=== PATIENT | female | born 1930 | race Hispanic/Latino ===

== ENCOUNTER 2017-01-20 14:08 | Inpatient (IN) | payer MEDICARE, BC ==
[2017-01-20 14:17] VITALS: BMI 17.4
[2017-01-20] MEDS ORDERED: Sodium Chloride 0.9% 1,000 ML IV STA (14:34)
--- NOTE | 2017-01-20 14:42 | ED PDOC ---
Arrival/HPI - General Chief Complaint: GI Problem Time Seen by Provider: 01/20/17 14:09 Historian: Patient - History of Present Illness Narrative History of Present Illness (Text): 01/20/17 14:28 A 86 year old female, whose past medical history includes hyponatremia, presents to the emergency department complaining of non bloody watery diarrhea since last night. Patient notes associated fatigue. She denies any nausea, vomiting, abdominal pain, dysuria, or any other complaints at this time. PMD: Dr. Ramos ([place]) Time/Duration: 24 hours Symptom Onset: Sudden Symptom Course: Unchanged Quality: Other Activities at Onset: Rest Modifying Factors (Text): None Context: Home Associated Symptoms (Text): fatigue Past Medical History - Provider Review Nursing Documentation Reviewed: Yes - Travel History Have you recently traveled outside [place] w/in the past 3 mons?: No - Infectious Disease Hx of Infectious Diseases: None - Cardiac Hx Cardiac Disorders: Yes Hx Hypertension: Yes - Pulmonary Hx Respiratory Disorders: No - Neurological Hx Neurological Disorder: No - HEENT Hx HEENT Disorder: Yes - Renal Hx Renal Disorder: No - Endocrine/Metabolic Hx Endocrine Disorders: No - Hematological/Oncological Hx Blood Disorders: No - Integumentary Hx Dermatological Disorder: No - Musculoskeletal/Rheumatological Hx Musculoskeletal Disorders: No - Gastrointestinal Hx Gastrointestinal Disorders: Yes Hx Gastritis: Yes Hx Gastroesophageal Reflux: Yes - Genitourinary/Gynecological Hx Genitourinary Disorders: No - Psychiatric Hx Psychophysiologic Disorder: Yes Hx Depression: Yes Hx Substance Use: No - Surgical History Hx Hysterectomy: Yes - Anesthesia Hx Anesthesia: Yes Hx Anesthesia Reactions: No Family/Social History - Physician Review Nursing Documentation Reviewed: Yes Family/Social History: Unknown Family HX Smoking Status: Unknown If Ever Smoked Hx Alcohol Use: No Hx Substance Use: No Allergies/Home Meds Allergies/Adverse Reactions: Allergies dairy Allergy (Uncoded 01/20/17 14:15) VOMITING Home Medications: Home Meds Medication Instructions Recorded Confirmed Acetaminophen [Tylenol 325mg tab] 1 tab PO PRN PRN 01/20/17 01/20/17 Aspirin [Johnson Aspirin] 1 tab PO DAILY 01/20/17 01/20/17 Atorvastatin [Lipitor] 1 tab PO DAILY 01/20/17 01/20/17 Carvedilol [Coreg] 1 tab PO DAILY 01/20/17 01/20/17 Cyanocobalamin (Vitamin B-12) 1 tab PO DAILY 01/20/17 01/20/17 [Vitamin B12] Desloratadine [Clarinex] 1 tab PO DAILY 01/20/17 01/20/17 Docusate Sodium [Colace] 1 tab PO PRN PRN 01/20/17 01/20/17 Melatonin [Melatin] 2 tab PO BID 01/20/17 01/20/17 Memantine [Namenda] 1 tab PO HS 01/20/17 01/20/17 Omeprazole Magnesium [Prilosec] 1 tab PO DAILY 01/20/17 01/20/17 Vit A/Vit C/Vit E/Zinc/Copper 1 tab PO DAILY 01/20/17 01/20/17 [Icaps Areds Softgel] buPROPion [Wellbutrin] 1 tab PO DAILY 01/20/17 01/20/17 hydrALAZINE [Apresoline] 50 mg PO TID 01/20/17 01/20/17 traZODone [Desyrel] 1.5 tab PO HS 01/20/17 01/20/17 Physical Exam - Physical Exam Narrative Physical Exam (Text): - Review of Systems Constitutional: Fatigue absent: Weight Change Eyes: Normal ENT: Normal Respiratory: Normal absent: SOB, Cough, Sputum Cardiovascular: Normal absent: Chest pain, Palpitations, Syncope Gastrointestinal: Diarrhea absent: Abdominal pain, Nausea, Vomiting Genitourinary: Normal. absent: Dysuria, Frequency, Hematuria Musculoskeletal: Normal. absent: Arthralgias, Back Pain, Neck Pain Skin: Normal Neurological: Normal absent: Focal Weakness Endocrine: Normal Hemo/Lymphatic: Normal Psychiatric: Normal - Physical exam Patient appears age appropriate, speaking full sentences without difficulty. - Systems Exam Head: Present: Atraumatic, Normocephalic Pupils: Present: PERRL Extraocular Muscles: Present: EOMI Conjunctiva: Present: Normal Mouth: Present: Moist Mucous Membranes Neck: Present: Normal Range of Motion. No: MIDLINE TENDERNESS, Paraspinal Tenderness Respiratory/Chest: Present: Clear to Auscultation, Good Air Exchange. No: Respiratory Distress, Accessory Muscle Use, Tachypneic Cardiovascular: Present: Regular Rate and Rhythm, Normal S1, S2, Peripheral Pulses Present. No: Murmurs Abdomen: Present: Normal Bowel Sounds, No: Tenderness, Peritoneal Signs, Rebound, Guarding, Distention Back: Present: Normal Inspection. No: Midline Tenderness, Paraspinal Tenderness Upper Extremity: Present: Normal Inspection. No: Cyanosis, Edema Lower Extremity: Present: Normal Inspection. No: Edema Neurological: Present: GCS=15, Speech Normal, cranial nerves II through XII fully intact with no cerebellar abnormality, neuro-sensory fully intact. No focal neurological deficits. Skin: Present: Warm, Dry, Normal Color. No: Rashes Lymphatic: Present: OX3, NI, NC Psychiatric: Present: Alert, Oriented x 3, Normal Insight, Normal Concentration Vital Signs Reviewed: Yes Vital Signs Temp Pulse Resp BP Pulse Ox 01/20/17 16:53 99.2 F 71 18 121/59 L 96 01/20/17 14:44 100.7 F H 01/20/17 14:15 100.7 F H 76 18 123/58 L 96 Temperature: Febrile Blood Pressure: Hypotensive Pulse: Regular Respiratory Rate: Normal Appearance: Positive for: Well-Appearing, Non-Toxic, Comfortable Pain Distress: None Mental Status: Positive for: Alert and Oriented X 3 Medical Decision Making ED Course and Treatment: 01/20/17 14:28 Impression: A 86 year old female with non bloody watery diarrhea. Physical examination reveals no acute findings. Differential Diagnosis include but are not limited to: Viral illness vs. electrolyte imbalance vs. dehydration Plan: -- Abdomen/Pelvis CT -- Labs -- Urinalysis -- Reassess and disposition Progress Notes: EKG: Ordered, reviewed, and independently interpreted the EKG. Rate : 73 BPM Rhythm : NSR Interpretation : No ST-segment elevations, normal intervals. Interpreted by me. 01/20/17 15:24 Leukocytosis noted; diarrhea presumed infectious, antibiotics ordered. Hyponatremia noted, patient already receiving IV Fluids. 01/20/17 15:56 Abdomen/Pelvis CT: Dictator : Fercho Kim MD IMPRESSION: Gastric mural thickening, nonspecific, involving the fundus and body of the stomach. Evaluation limited by poor distension and absent oral contrast. Sigmoid diverticulosis without evidence of diverticulitis. Minimal fluid in pelvis. Additional minor findings as above. 01/20/17 16:35 pt expressed wished to be admitted to Dr. Sanders's service dw resident Dr. Tommy cash pt hemodynamically stable in no distress 01/20/17 16:[address] Adaniel, accepted pt to his service - Lab Interpretations Lab Results: 01/20/17 14:30 01/20/17 14:30 Lab Results 01/20/17 15:20: Urine Color Yellow, Urine Appearance Clear, Urine pH 7.0, Ur Specific [place] 1.025, Urine Protein 100 H, Urine Glucose (UA) Negative, Urine Ketones Negative, Urine Blood Negative, Urine Nitrate Negative, Urine Bilirubin Negative, Urine Urobilinogen 0.2, Ur Leukocyte Esterase Negative, Urine RBC 0 - 2, Urine WBC 2 - 5, Ur Epithelial Cells 0 - 2, Urine Bacteria Occ 01/20/17 14:30: Sodium 125 L, Potassium 3.8, Chloride 90 L, Carbon Dioxide 28, Anion Gap 11, BUN 18, Creatinine 0.7, Est GFR ( Amer) > 60, Est GFR (Non- Af Amer) > 60, Random Glucose 115 H, Calcium 8.7, Total Bilirubin 1.1, AST 26, ALT 32, Alkaline Phosphatase 67, Total Protein 6.4, Albumin 3.6, Globulin 2.7, Albumin/Globulin Ratio 1.3, Lipase 57 01/20/17 14:30: PT 11.7, INR 1.08, APTT 30.3 01/20/17 14:30: WBC 13.9 H, RBC 3.51, Hgb 11.5 L, Hct 33.1 L, MCV 94.3, MCH 32.8 , MCHC 34.7, RDW 14.4, Plt Count 177, MPV 9.6, Gran % 91.5 H, Lymph % (Auto) 3.7 L, [place] % (Auto) 4.7, Eos % (Auto) 0.0 L, Baso % (Auto) 0.1, Gran # 12.76 H , Lymph # 0.5 L, [place] # 0.7 H, Eos # 0.0, Baso # 0.01, Neutrophils % (Manual) 90 H, Band Neutrophils % 5 H, Lymphocytes % (Manual) 3 L, Monocytes % (Manual) 2 , Platelet Evaluation Normal I have reviewed the lab results: Yes - RAD Interpretation Radiology Orders: 01/20/17 14:26 ABD & PELVIS W/O PO OR IV CONT [CT] Stat - Medication Orders Current Medication Orders: Discontinued Medications Acetaminophen (Tylenol 325mg Tab) 650 mg PO STAT STA Stop: 01/20/17 14:35 Last Admin: 01/20/17 14:44 Dose: 650 mg Sodium Chloride (Sodium Chloride 0.9%) 1,000 mls @ 1,000 mls/hr IV .Q1H STA Stop: 01/20/17 15:33 Last Admin: 01/20/17 14:41 Dose: 1,000 mls/hr Metronidazole (Flagyl) 500 mg in 100 mls @ 100 mls/hr IVPB STAT STA PRN Reason: Protocol Stop: 01/20/17 16:21 Last Admin: 01/20/17 16:53 Dose: 100 mls/hr Ceftriaxone Sodium (Rocephin 1 Gram Ivpb) 1 gm in 100 mls @ 200 mls/hr IV STAT STA PRN Reason: Protocol Stop: 01/20/17 15:51 Last Admin: 01/20/17 16:14 Dose: 200 mls/hr - Scribe Statement The provider has reviewed the documentation as recorded by the Scribe Melissa Grullon training with Eduar Blanco Provider Scribe Attestation: All medical record entries made by the Scribe were at my direction and personally dictated by me. I have reviewed the chart and agree that the record accurately reflects my personal performance of the history, physical exam, medical decision making, and the department course for this patient. I have also personally directed, reviewed, and agree with the discharge instructions and disposition. Disposition/Present on Arrival - Present on Arrival Any Indicators Present on Arrival: No History of DVT/PE: No History of Uncontrolled Diabetes: No Urinary Catheter: No History of Decub. Ulcer: No History Surgical Site Infection Following: None - Disposition Have Diagnosis and Disposition been Completed?: Yes Diagnosis: Diarrhea Disposition: HOSPITALIZED Disposition Time: 16:48 Patient Plan: Admission Patient Problems: Current Active Problems Problem Status Onset Diarrhea Acute Condition: FAIR Referrals: PCP,NO [Primary Care Provider] - Follow up with primary
[2017-01-20 14:55] LABS: BASO # 0.01 K/mm3 (0.0-2.0); BASO % 0.1 % (0.0-3.0); GRAN # 12.76 (1.4-6.5); GRAN % 91.5 % (50.0-68.0); HEMOGLOBIN 11.5 gm/dL (12.0-16.0); LYMPH # 0.5 (1.2-3.4); LYMPH % 3.7 % (22.0-35.0); MEAN CELL VOLUME 94.3 fL (80.0-105.0); MEAN CORPUSCULAR HEMOGLOBIN 32.8 pg (25.0-35.0); MEAN CORPUSCULAR HGB CONC 34.7 g/dl (31.0-37.0); MEAN PLATELET VOLUME 9.6 fl (7.0-11.0); MONO # 0.7 (0.1-0.6); MONO % 4.7 % (1.0-6.0); PLATELET COUNT 177 10^3/uL (120.0-450.0); RBC 3.51 10^6/uL (3.5-6.1); RED CELL DISTRIBUTION WIDTH 14.4 % (11.5-14.5); WHITE BLOOD COUNT 13.9 10^3/ul (4.5-11.0)
[2017-01-20 15:06] LABS: ALB/GLOB RATIO 1.3 (1.1-1.8); ALBUMIN 3.6 g/dL (3.0-4.8); ALT/SGPT 32 U/L (7-56); AST/SGOT 26 U/L (15-39); BLOOD UREA NITROGEN 18 mg/dL (7-21); CALCIUM 8.7 mg/dL (8.4-10.5); GFR AFRICAN-AMERICAN > 60; GFR NON-AFRICAN AMERICAN > 60; LIPASE 57 U/L (23-300)
[2017-01-20 15:08] LABS: INR 1.08 (0.93-1.08); PARTIAL THROMBOPLASTIN TIME 30.3 Seconds (23.7-30.8); PROTHROMBIN TIME 11.7 Seconds (9.9-11.8)
[2017-01-20] MEDS ORDERED: metroNIDAZOLE IV 500 mg/100 ml 500 MG/100 ML BAG IVPB STA (15:22)
[2017-01-20] MEDS ORDERED: cefTRIAXone 1 gm 1 GM/100 ML BAG IV STA (15:22)
[2017-01-20 15:29] LABS: URINE BILIRUBIN NEGATIVE (NEGATIVE); URINE BLOOD NEGATIVE (NEGATIVE); URINE GLUCOSE (UA) NEGATIVE (NEGATIVE); URINE LEUKOCYTE ESTERASE NEGATIVE Leu/uL (NEGATIVE); URINE NITRATE NEGATIVE (NEGATIVE); URINE PROTEIN 100 mg/dL (<30 mg/dL); URINE UROBILINOGEN 0.2 E.U./dL (<1 E.U./dL)
[2017-01-20 15:33] LABS: URINE APPEARANCE CLEAR (CLEAR); URINE COLOR YELLOW (YELLOW)
[2017-01-20 15:41] LABS: URINE EPITHELIAL CELLS 0 - 2 /hpf (0-5); URINE RBC 0 - 2 /hpf (0-2)
[2017-01-20 15:42] LABS: URINE BACTERIA OCC (NEG)
--- NOTE | 2017-01-20 15:53 | CT ---
PROCEDURE: CT Abdomen and Pelvis without intravenous contrast HISTORY: diarrhea COMPARISON: None. TECHNIQUE: Without contrast.. Contrast Dose: 0 Radiation dose: Total exam DLP = 192.49 mGy-cm. This CT exam was performed using one or more of the following dose reduction techniques: Automated exposure control, adjustment of the mA and/or kV according to patient size, and/or use of iterative reconstruction technique. FINDINGS: LOWER THORAX: Unremarkable. LIVER: Unremarkable. No gross lesion or ductal dilatation. GALLBLADDER AND BILE DUCTS: Unremarkable. PANCREAS: Unremarkable. No gross lesion or ductal dilatation. SPLEEN: Unremarkable. ADRENALS: Unremarkable. No mass. KIDNEYS AND URETERS: Unremarkable. No hydronephrosis. No solid mass. VASCULATURE: No evidence of abdominal aortic aneurysm. BOWEL: There is mural thickening of the gastric fundus and body although evaluation is limited by the absence of oral contrast and distension. This is nonspecific and may reflect an infectious or inflammatory gastritis. There is no bowel obstruction. There is sigmoid diverticulosis without evidence diverticulitis. APPENDIX: Not positively identified. No secondary findings to suggest acute appendicitis. PERITONEUM: Small amount of fluid in the pelvis, nonspecific. LYMPH NODES: There is no retroperitoneal or pelvic lymphadenopathy. There is a linear array of nodular calcifications in the lower right abdomen, likely old calcified mesenteric lymph nodes. BLADDER: Unremarkable. REPRODUCTIVE: Status post hysterectomy. BONES: No acute fracture. Lumbar levoscoliosis. Grade 1 anterolisthesis at L5-S1 with right L5 spondylolysis. Multilevel degenerative disc disease in the lumbar spine. OTHER FINDINGS: None. IMPRESSION: Gastric mural thickening, nonspecific, involving the fundus and body of the stomach. Evaluation limited by poor distension and absent oral contrast. Sigmoid diverticulosis without evidence of diverticulitis. Minimal fluid in pelvis. Additional minor findings as above.
[2017-01-20 16:12] LABS: BAND 5 % (0-2); LYMPHOCYTE 3 % (22.0-35.0); MONOCYTE 2 % (1.0-6.0); NEUTROPHIL 90 % (50.0-70.0); PLATELET ESTIMATE NORMAL (NORMAL)
--- NOTE | 2017-01-20 21:11 | CP.PCM.HP ---
<MelvingennyObey - Last Filed: 01/20/17 21:08> History of Present Illness - History of Present Illness History of Present Illness: Patient is an 86 year old female who presented to the ED complaining of Non- Bloody liquid Diarrhea x 1 day. Patient stated that she has had bowel movements every hour for the past day. Patient denies any nausea, vomiting, abdominal pain, and dysuria. Complains of fatigue associated with diarrhea. 12 point ROS as per HPI above otherwise negative. PMH Hyponatremia, Bronchitis, breast CA (remission), salivary duct CA ( Remission) and HTN, Insomnia PSH B/L mastectomy, salivary duct removal, Hysterectomy Allergies Lactose Intolerance Hospitalizations [facility] in [facility] for Bronchitis (found to be Hyponatremia at that point) Fam Hx - Mother had Ovarian cancer ( in her 60s), Father had Brain Tumor ( in his 60s) Social Hx: Denies Tobacco and Alcohol use. Drinks Tea in the morning. Most recent meals before symptoms was Had Beef BBQ ribs/ Fish and Chips Present on Admission - Present on Admission Any Indicators Present on Admission: No Past Patient History - Infectious Disease Hx of Infectious Diseases: None - Past Social History Smoking Status: Unknown If Ever Smoked - CARDIAC Hx Cardiac Disorders: Yes Hx Hypertension: Yes - PULMONARY Hx Respiratory Disorders: No - NEUROLOGICAL Hx Neurological Disorder: No - HEENT Hx HEENT Problems: Yes - RENAL Hx Chronic Kidney Disease: No - ENDOCRINE/METABOLIC Hx Endocrine Disorders: No - HEMATOLOGICAL/ONCOLOGICAL Hx Blood Disorders: No - INTEGUMENTARY Hx Dermatological Problems: No - MUSCULOSKELETAL/RHEUMATOLOGICAL Hx Musculoskeletal Disorders: No - GASTROINTESTINAL Hx Gastrointestinal Disorders: Yes Hx Gastritis: Yes Hx Gastroesophageal Reflux: Yes - GENITOURINARY/GYNECOLOGICAL Hx Genitourinary Disorders: No - PSYCHIATRIC Hx Psychophysiologic Disorder: Yes Hx Depression: Yes Hx Substance Use: No - SURGICAL HISTORY Hx Hysterectomy: Yes - ANESTHESIA Hx Anesthesia: Yes Hx Anesthesia Reactions: No Meds Allergies/Adverse Reactions: Allergies Allergy/AdvReac Type Severity Reaction Status Date / Time dairy Allergy VOMITING Uncoded 01/20/17 14:15 Physical Exam - Constitutional Appears: Non-toxic, No Acute Distress - Head Exam Head Exam: ATRAUMATIC, NORMOCEPHALIC - Eye Exam Eye Exam: EOMI - Respiratory Exam Respiratory Exam: Clear to Auscultation Bilateral. absent: Accessory Muscle Use , Rales, Rhonchi, Wheezes, Stridor - Cardiovascular Exam Cardiovascular Exam: REGULAR RHYTHM, +S1, +S2. absent: +S4, Systolic Murmur - GI/Abdominal Exam GI & Abdominal Exam: Hyperactive Bowel Sounds, Soft. absent: Distended, Tenderness - Extremities Exam Extremities exam: Positive for: normal capillary refill. Negative for: pedal edema - Neurological Exam Neurological exam: Alert, Oriented x3 - Psychiatric Exam Psychiatric exam: Normal Affect, Normal Mood - Skin Skin Exam: Intact, Normal Color Results - Vital Signs Recent Vital Signs: Last Vital Signs Temp 99.2 F 01/20/17 16:53 Pulse 79 01/20/17 17:47 Resp 17 01/20/17 17:47 BP 121/59 L 01/20/17 16:53 Pulse Ox 98 01/20/17 17:47 - Labs Result Diagrams: 01/20/17 14:30 01/20/17 14:30 Assessment & Plan - Assessment and Plan (Free Text) Assessment: A: Patient is an 86 year old female who presented to the ED complaining of Non- Bloody Liquid Diarrhea x 1 day w/ associated fatigue. Plan: P: 1.Diarrhea w/ associated Fatigue -Blood Cultures, CDiff Toxin and Antigen test, Ova and Parasite routine, Stool Cultures, Urine Cultures, Fecal Leukocytes, Procalcitonin, metronidazole IV, Ceftriaxone, Protonix. 2.Hyponatremia -Fluids, Urine Osmolality, 3.Anemia -Reticulocyte Count, Ferritin, B12/Folate, Fecal Ocult Blood Test 4.HTN -Carvedilol 5.Insomnia -Trazadone 6.GI proph -Protonix - Date & Time Date: 01/20/17 Time: 21:16 <Marlo Sanders - Last Filed: 02/09/17 13:10> Results - Vital Signs Recent Vital Signs: Last Vital Signs Temp 98.3 F 01/22/17 07:50 Pulse 78 01/22/17 13:45 Resp 20 01/22/17 07:50 BP 128/82 01/22/17 13:45 Pulse Ox 97 01/22/17 07:50 - Labs Result Diagrams: 01/22/17 07:00 01/22/17 07:00 Attending/Attestation - Attestation I have personally seen and examined this patient.: Yes I have fully participated in the care of the patient.: Yes I have reviewed all pertinent clinical information: Yes Notes (Text): 02/09/17 13:10 Medical record note made by the resident after discussion with my direction and input after the patient was personally seen and examined by me. I have reviewed the chart and agree that the record accurately reflects by personal performance of the history, physical exam, data review, and medical decision-making, in the course for the patient. I have also personally directed the plan of care.
[2017-01-20 21:29] LABS: % IRON SATURATION 5 % (20-55); IRON 13 ug/dL (45-180); TOTAL IRON BINDING CAPACITY 244 ug/dL (265-497)
[2017-01-20] MEDS: Sodium Chloride 0.9% 1,000 ML IV SCH (21:30)
[2017-01-20] MEDS: metroNIDAZOLE IV 500 mg/100 ml 500 MG/100 ML BAG IVPB SCH (21:32)
[2017-01-21] MEDS: metroNIDAZOLE IV 500 mg/100 ml 500 MG/100 ML BAG IVPB SCH ×2 (05:13→14:28)
[2017-01-21 07:09] LABS: BASO # 0.01 K/mm3 (0.0-2.0); BASO % 0.2 % (0.0-3.0); GRAN # 5.25 (1.4-6.5); GRAN % 84.2 % (50.0-68.0); LYMPH # 0.6 (1.2-3.4); MEAN CELL VOLUME 94.5 fL (80.0-105.0); MEAN CORPUSCULAR HEMOGLOBIN 32.2 pg (25.0-35.0); MEAN PLATELET VOLUME 9.6 fl (7.0-11.0); MONO # 0.4 (0.1-0.6); MONO % 5.6 % (1.0-6.0); PLATELET COUNT 151 10^3/uL (120.0-450.0); RBC 3.11 10^6/uL (3.5-6.1); RED CELL DISTRIBUTION WIDTH 14.5 % (11.5-14.5); WHITE BLOOD COUNT 6.2 10^3/ul (4.5-11.0)
[2017-01-21 07:17] LABS: ALB/GLOB RATIO 1.1 (1.1-1.8); ALBUMIN 2.8 g/dL (3.0-4.8); ALT/SGPT 31 U/L (7-56); AST/SGOT 27 U/L (15-39); BLOOD UREA NITROGEN 12 mg/dL (7-21); CALCIUM 8.1 mg/dL (8.4-10.5); GFR AFRICAN-AMERICAN > 60; GFR NON-AFRICAN AMERICAN > 60
[2017-01-21] MEDS ORDERED: Potassium Chloride 40 mEq/30 ml LIQ UD PO STA (07:42)
[2017-01-21] MEDS: Sodium Chloride 0.9% 1,000 ML IV SCH (08:21)
[2017-01-21] MEDS ORDERED: cefTRIAXone 1 gm 1 GM/100 ML BAG IVPB SCH (10:00)
--- NOTE | 2017-01-21 10:33 | CARD ---
APPROVED REPORT EKG Measurement Heart [id number] <Conclusion> Normal sinus rhythm Possible Left atrial enlargement NSSTW changes Prolonged QTc
[2017-01-21] MEDS: Potassium Chloride 40 mEq/30 ml LIQ UD PO SCH ×3 (12:05→20:53)
[2017-01-21 13:38] LABS: FOLATE > 20.0 ng/mL
--- NOTE | 2017-01-21 14:54 | CP.PCM.PN ---
Addendum entered and electronically signed by Logan Dominguez DO 01/21/17 16:18: Patient was seen and examined and case was discussed at length with Dr. Garcia. Patient likely food borne illness vs self ingestion of lactose in ice cream while lactose intolerant vs gastroenteritis as cause for her diarrhea. Some GI losses resulting in electrolyte abnormalities, are being repleted as needed and hydrating patient. Discussed at length with daughter at bedside. Logan Dominguez D.O. PGY-2 Original Note: <JUAN GARCIA - Last Filed: 01/21/17 15:06> Subjective - Date & Time of Evaluation Date of Evaluation: 01/21/17 Time of Evaluation: 06:45 - Subjective Subjective: Juan Garcia D.O. PGY1 - Internal Medicine Progress Note - [facility] Patient seen and examined at bedside. Today is hospital day 2. Patient was admitted overnight for diarrhea and hyponatremia. Today, she is doing well, last BM was late last night, loose, no blood or mucus. 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 pylori infection, recently treated. Today, she denies CP, SOB, F/C, nausea, vomiting, dizziness, confusion, headache. Objective - Vital Signs/Intake and Output Vital Signs (last 24 hours): Temp Pulse Resp BP Pulse Ox 98.3 F 75 18 130/62 96 01/21/17 07:30 01/21/17 11:18 01/21/17 07:30 01/21/17 11:18 01/21/17 07:30 Intake and Output: 01/21/17 01/21/17 06:59 18:59 Intake Total 180 Balance 180 - Medications Medications: Current Medications Acetaminophen (Tylenol 325mg Tab) 650 mg PO Q6H PRN PRN Reason: Fever >100.4 F Aspirin (Aspirin Chewable) 81 mg PO DAILY [facility] Last Admin: 01/21/17 11:19 Dose: 81 mg Atorvastatin Calcium (Lipitor) 10 mg PO DAILY [facility] Last Admin: 01/21/17 11:20 Dose: 10 mg Bupropion HCl (Wellbutrin) 75 mg PO DAILY [facility] Last Admin: 01/21/17 11:20 Dose: 75 mg Carvedilol (Coreg) 6.25 mg PO DAILY [facility] Last Admin: 01/21/17 11:19 Dose: 6.25 mg Ferrous Sulfate (Feosol) 324 mg PO DAILY [facility] Last Admin: 01/21/17 11:19 Dose: 324 mg Hydralazine HCl (Apresoline) 50 mg PO TID [facility] Last Admin: 01/21/17 11:18 Dose: 50 mg Metronidazole (Flagyl) 500 mg in 100 mls @ 100 mls/hr IVPB Q8 [facility] PRN Reason: Protocol Last Admin: 01/21/17 05:13 Dose: 100 mls/hr Ceftriaxone Sodium (Rocephin 1 Gram Ivpb) 1 gm in 100 mls @ 100 mls/hr IVPB DAILY [facility] PRN Reason: Protocol Last Admin: 01/21/17 11:20 Dose: 100 mls/hr Sodium Chloride (Sodium Chloride 0.9%) 1,000 mls @ 75 mls/hr IV .[id number] [facility] Last Admin: 01/21/17 08:21 Dose: 75 mls/hr Magnesium Oxide (Mag-Ox) 400 mg PO BID [facility] Memantine (Namenda) 5 mg PO [facility] Last Admin: 01/20/17 21:32 Dose: 5 mg Pantoprazole Sodium (Protonix Inj) 40 mg IVP 0600 [facility] Last Admin: 01/21/17 05:12 Dose: 40 mg Potassium Chloride (Potassium Chloride Oral Soln) 40 meq PO Q4 [facility] Stop: 01/21/17 20:01 Last Admin: 01/21/17 12:05 Dose: 40 meq Trazodone HCl (Desyrel) 25 mg PO HS [facility] Last Admin: 01/20/17 21:31 Dose: 25 mg - Labs Labs: 01/21/17 06:30 01/21/17 06:30 PT 11.7 Seconds (9.9-11.8) 01/20/17 14:30 INR 1.08 (0.93-1.08) 01/20/17 14:30 APTT 30.3 Seconds (23.7-30.8) 01/20/17 14:30 - Constitutional Appears: Well, Non-toxic, Chronically Ill - Head Exam Head Exam: ATRAUMATIC, NORMOCEPHALIC - Eye Exam Eye Exam: EOMI, Normal appearance, PERRL - ENT Exam ENT Exam: Mucous Membranes Moist - Neck Exam Neck Exam: Full ROM. absent: Lymphadenopathy, Thyromegaly - Respiratory Exam Respiratory Exam: Clear to Ausculation Bilateral. absent: Rales, Rhonchi, Wheezes - Cardiovascular Exam Cardiovascular Exam: RRR, +S1, +S2 - GI/Abdominal Exam GI & Abdominal Exam: Soft, Normal Bowel Sounds. absent: Tenderness - Extremities Exam Extremities Exam: absent: Calf Tenderness, Pedal Edema - Back Exam Back Exam: absent: CVA tenderness (L), CVA tenderness (R) - Neurological Exam Neurological Exam: Alert, Awake, Oriented x3 - Psychiatric Exam Psychiatric exam: Normal Affect, Normal Mood - Skin Skin Exam: Dry, Intact, Normal Color Assessment and Plan - Assessment and Plan (Free Text) Assessment: 86 yo F with a PMH of hyponatremia, intracranial hematoma, bronchitis, breast CA , salivary duct CA, HTN, insomnia, anemia, and H. pylori infection, who initially presented to [facility] for watery diarrhea. Currently being treated for anemia as well as dehydration, hyponatremia, hypomagnesemia, and hypokalemia 2/ 2 diarrhea. Plan: 1. Diarrhea - Improving - Stool negative for C. diff, blood cultures negative after 24 hrs. Diarrhea was likely due to undercooked food or diary products as patients reports history of lactose intolerance and endorses two meals at [facility] - Disontinue flagyl - Continue to monitor 2. Hyponatremia - Possibly 2/2 SIADH - Urine osmolality pending - Continue IVF hydration 3. Hypokalemia, hypomagnesemia - Emerged after IVF hydration - Start PO KCl 40mEq q4h x4 - Start MgSO4 IV 4. Anemia - Reticulocyte Count, Ferritin, B12/Folate indicate iron deficiency - Start ferrous sulfate - Continue to monitor 5. HTN - Continue home carvedilol, hydralazine 6. Insomnia - Continue trazodone 7. Depression/Anxiety - Continue wellbutrin 8. Dyslipidemia - Continue atorvastatin, aspirin 9. Alzheimer - Continue namenda 10. GI/DVT prophylaxis - Protonix, SCD Patient seen and reviewed and discussed with senior Dr. Dominguez PGY2 and attending Dr. Sanders <Marlo Sanders - Last Filed: 02/09/17 13:11> Objective - Vital Signs/Intake and Output Vital Signs (last 24 hours): Temp Pulse Resp BP Pulse Ox 98.3 F 78 20 128/82 97 01/22/17 07:50 01/22/17 13:45 01/22/17 07:50 01/22/17 13:45 01/22/17 07:50 - Labs Labs: 01/22/17 07:00 01/22/17 07:00 PT 11.7 Seconds (9.9-11.8) 01/20/17 14:30 INR 1.08 (0.93-1.08) 01/20/17 14:30 APTT 30.3 Seconds (23.7-30.8) 01/20/17 14:30 Attending/Attestation - Attestation I have personally seen and examined this patient.: Yes I have fully participated in the care of the patient.: Yes I have reviewed all pertinent clinical information, including history, physical exam and plan: Yes Notes (Text): 02/09/17 13:11 Medical record note made by the resident after discussion with my direction and input after the patient was personally seen and examined by me. I have reviewed the chart and agree that the record accurately reflects by personal performance of the history, physical exam, data review, and medical decision-making, in the course for the patient. I have also personally directed the plan of care.
[2017-01-21] MEDS ORDERED: Magnesium Sulfate 1 gm in D5W 1 GM/100 ML BAG IVPB ONE (15:18)
[2017-01-21] MEDS ORDERED: Magnesium Oxide 400 mg Tab UD PO SCH (18:00)
[2017-01-22] MEDS: Sodium Chloride 0.9% 1,000 ML IV SCH ×2 (03:11→10:40)
[2017-01-22 07:38] LABS: BASO # 0.01 K/mm3 (0.0-2.0); BASO % 0.3 % (0.0-3.0); EOS % 1.3 % (1.5-5.0); GRAN # 1.84 (1.4-6.5); GRAN % 57.4 % (50.0-68.0); HEMOGLOBIN 10.2 gm/dL (12.0-16.0); LYMPH # 0.8 (1.2-3.4); LYMPH % 23.8 % (22.0-35.0); MEAN CELL VOLUME 93.9 fL (80.0-105.0); MEAN CORPUSCULAR HGB CONC 35.2 g/dl (31.0-37.0); MEAN PLATELET VOLUME 9.2 fl (7.0-11.0); MONO # 0.6 (0.1-0.6); MONO % 17.2 % (1.0-6.0); PLATELET COUNT 144 10^3/uL (120.0-450.0); RBC 3.09 10^6/uL (3.5-6.1); RED CELL DISTRIBUTION WIDTH 14.2 % (11.5-14.5); WHITE BLOOD COUNT 3.2 10^3/ul (4.5-11.0)
[2017-01-22 07:50] VITALS: RESP 20; TEMP 98.3; O2SAT 97
[2017-01-22 08:04] LABS: ALB/GLOB RATIO 1.2 (1.1-1.8); ALBUMIN 2.9 g/dL (3.0-4.8); ALT/SGPT 27 U/L (7-56); AST/SGOT 31 U/L (15-39); BLOOD UREA NITROGEN 6 mg/dL (7-21); CALCIUM 8.4 mg/dL (8.4-10.5); GFR AFRICAN-AMERICAN > 60; GFR NON-AFRICAN AMERICAN > 60
[2017-01-22 13:46] VITALS: BP 128/82; PULSE 78
--- NOTE | 2017-01-22 20:38 | CP.PCM.DIS ---
Addendum entered and electronically signed by Logan Dominguez DO 01/23/17 09:29: Patient mentions today that her grandson who ate the same things as her may have also had some diarrhea. Her diarrhea has resolved. Electrolytes repleted. 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 Will be following up with her PCP within the week. Logan Dominguez D.O. PGY-2 Original Note: <ADELA PEREZRAM - Last Filed: 01/22/17 20:34> Provider - Provider Date of Admission: 01/20/17 16:51 Attending physician: Mic Rodriguez MD Primary care physician: NO PRIMARY CARE PROVIDER Time Spent in preparation of Discharge (in minutes): 40 Diagnosis - Discharge Diagnosis (1) Diarrhea Status: Acute Priority: High (2) Hyponatremia Status: Acute Priority: Medium (3) Anemia Status: Acute Priority: Medium Hospital Course - Lab Results Lab Results: Micro Results 01/20/17 21:00 Stool Ova and Parasite Concentrate Exam - Final 01/20/17 21:00 Stool C. difficile Antigen & Toxin A,B (M - Final Most Recent Lab Values WBC 3.2 10^3/ul (4.5-11.0) L D 01/22/17 07:00 RBC 3.09 10^6/uL (3.5-6.1) L 01/22/17 07:00 Hgb 10.2 gm/dL (12.0-16.0) L 01/22/17 07:00 Hct 29.0 % (36.0-48.0) L 01/22/17 07:00 MCV 93.9 fL (80.0-105.0) 01/22/17 07:00 MCH 33.0 pg (25.0-35.0) 01/22/17 07:00 MCHC 35.2 g/dl (31.0-37.0) 01/22/17 07:00 RDW 14.2 % (11.5-14.5) 01/22/17 07:00 Plt Count 144 10^3/uL (120.0-450.0) 01/22/17 07:00 MPV 9.2 fl (7.0-11.0) 01/22/17 07:00 Gran % 57.4 % (50.0-68.0) 01/22/17 07:00 Lymph % (Auto) 23.8 % (22.0-35.0) 01/22/17 07:00 [place] % (Auto) 17.2 % (1.0-6.0) H 01/22/17 07:00 Eos % (Auto) 1.3 % (1.5-5.0) L 01/22/17 07:00 Baso % (Auto) 0.3 % (0.0-3.0) 01/22/17 07:00 Gran # 1.84 (1.4-6.5) 01/22/17 07:00 Lymph # 0.8 (1.2-3.4) L 01/22/17 07:00 [place] # 0.6 (0.1-0.6) 01/22/17 07:00 Eos # 0.0 (0.0-0.7) 01/22/17 07:00 Baso # 0.01 K/mm3 (0.0-2.0) 01/22/17 07:00 Neutrophils % (Manual) 90 % (50.0-70.0) H 01/20/17 14:30 Band Neutrophils % 5 % (0-2) H 01/20/17 14:30 Lymphocytes % (Manual) 3 % (22.0-35.0) L 01/20/17 14:30 Monocytes % (Manual) 2 % (1.0-6.0) 01/20/17 14:30 Platelet Evaluation Normal (NORMAL) 01/20/17 14:30 Retic Count 1.67 % (0.5-1.5) H 01/21/17 06:30 PT 11.7 Seconds (9.9-11.8) 01/20/17 14:30 INR 1.08 (0.93-1.08) 01/20/17 14:30 APTT 30.3 Seconds (23.7-30.8) 01/20/17 14:30 Sodium 130 mmol/L (132-148) L 01/22/17 07:00 Potassium 4.2 mmol/L (3.6-5.0) 01/22/17 07:00 Chloride 99 mmol/L (98-107) 01/22/17 07:00 Carbon Dioxide 27 mmol/L (21-33) 01/22/17 07:00 Anion Gap 8 (10-20) L 01/22/17 07:00 BUN 6 mg/dL (7-21) L 01/22/17 07:00 Creatinine 0.5 mg/dL (0.5-1.4) 01/22/17 07:00 Est GFR ( Amer) > 60 01/22/17 07:00 Est GFR (Non-Af Amer) > 60 01/22/17 07:00 Random Glucose 90 mg/dL (70-110) 01/22/17 07:00 Serum Osmolality 271 mosm/kg (271-296) 01/20/17 14:30 Calcium 8.4 mg/dL (8.4-10.5) 01/22/17 07:00 Magnesium 1.7 mg/dL (1.7-2.2) 01/22/17 07:00 Iron 13 ug/dL (45-180) L 01/20/17 19:54 TIBC 244 ug/dL (265-497) L 01/20/17 19:54 % Saturation 5 % (20-55) L 01/20/17 19:54 Ferritin 166.0 ng/mL 01/21/17 06:30 Total Bilirubin 0.2 mg/dL (0.2-1.3) 01/22/17 07:00 AST 31 U/L (15-39) 01/22/17 07:00 ALT 27 U/L (7-56) 01/22/17 07:00 Alkaline Phosphatase 50 U/L (38-133) 01/22/17 07:00 Total Protein 5.4 g/dL (5.8-8.3) L 01/22/17 07:00 Albumin 2.9 g/dL (3.0-4.8) L 01/22/17 07:00 Globulin 2.5 gm/dL 01/22/17 07:00 Albumin/Globulin Ratio 1.2 (1.1-1.8) 01/22/17 07:00 Lipase 57 U/L (23-300) 01/20/17 14:30 Vitamin B12 > 1000 pg/mL (239-931) H 01/21/17 06:30 Folate > 20.0 ng/mL 01/21/17 06:30 Procalcitonin 0.42 NG/ML (0.19-0.49) 01/20/17 19:55 Urine Color Yellow (YELLOW) 01/20/17 15:20 Urine Appearance Clear (CLEAR) 01/20/17 15:20 Urine pH 7.0 (4.7-8.0) 01/20/17 15:20 Ur Specific Codorus 1.025 (1.005-1.035) 01/20/17 15:20 Urine Protein 100 mg/dL (<30 mg/dL) H 01/20/17 15:20 Urine Glucose (UA) Negative mg/dL (NEGATIVE) 01/20/17 15:20 Urine Ketones Negative mg/dL (NEGATIVE) 01/20/17 15:20 Urine Blood Negative (NEGATIVE) 01/20/17 15:20 Urine Nitrate Negative (NEGATIVE) 01/20/17 15:20 Urine Bilirubin Negative (NEGATIVE) 01/20/17 15:20 Urine Urobilinogen 0.2 E.U./dL (<1 E.U./dL) 01/20/17 15:20 Ur Leukocyte Esterase Negative Sujit/uL (NEGATIVE) 01/20/17 15:20 Urine RBC 0 - 2 /hpf (0-2) 01/20/17 15:20 Urine WBC 2 - 5 /hpf (0-6) 01/20/17 15:20 Ur Epithelial Cells 0 - 2 /hpf (0-5) 01/20/17 15:20 Urine Bacteria Occ (NEG) 01/20/17 15:20 Stool Leukocytes, Qual Negative (NEGATIVE) 01/20/17 21:00 - Hospital Course Hospital Course: 86F with PMH of hyponatremia, intracranial hematoma, bronchitis, breast CA, salivary duct CA, HTN, insomnia, anemia, and H. pylori infection, who initially presented to [facility] for watery diarrhea. Patient stated that she had bowel movements every hour for the prior day, and much later in the hospital course, admitted to one contact who had similar symptoms at the same time after eating the same foods, as well as a history of mild lactose intolerance and ice cream ingestion in the days preceding the diarrhea. Upon admission, she was started on empiric metronidazole for C. difficile colitis, but on hospital day 2 stool studies came back negative for C. diff and it was discontinued. She had several loose BMs on day two, but had none last night, and today had one formed BM. After initial fluid resuscitation, she was noted to have hyponatremia, hypokalemia, hypomagnesemia, and anemia. These electrolytes were replenished and she was started on iron supplement. Today, she was feeling well with no complaints. She had no episodes of diarrhea overnight, and had one formed BM today. AM labs showed improvement in electrolyte status and stable H/H. She also had a normal appetite and was tolerating PO, and walking around the floor without difficulty. She will be sent home with one month supply of iron supplement, and is encouraged to keep hydrated with electrolyte rich drinks. Discharge Exam - Head Exam Head Exam: ATRAUMATIC, NORMOCEPHALIC - Eye Exam Eye Exam: EOMI, Normal appearance - ENT Exam ENT Exam: Mucous Membranes Moist - Respiratory Exam Respiratory Exam: Clear to PA & Lateral, NORMAL BREATHING PATTERN. absent: Rales, Rhonchi, Wheezes - Cardiovascular Exam Cardiovascular Exam: RRR, +S1, +S2 - GI/Abdominal Exam GI & Abdominal Exam: Normal Bowel Sounds, Soft. absent: Firm, Guarding, Rigid, Tenderness - Extremities Exam Extremities exam: normal inspection - Back Exam Back exam: absent: CVA tenderness (L), CVA tenderness (R) - Neurological Exam Neurological exam: Alert, Oriented x3 - Psychiatric Exam Psychiatric exam: Normal Affect, Normal Mood - Skin Skin Exam: Dry, Intact, Normal Color, Warm Discharge Plan - Discharge Medications Prescriptions: Ferrous Sulfate [Ferosul] 325 mg PO DAILY #30 tablet - Follow Up Plan Condition: FAIR Disposition: HOME/ ROUTINE Patient education suggested?: Yes Instructions: Rotavirus Infection (DC), Rotavirus Infection (GEN), Gastritis ( DC), Hyponatremia (DC), Hyponatremia (GEN), Depression (DC), Lactose-Controlled Diet (GEN), Hypertension (DC), Nutrition Tips for Relief of Diarrhea (DC), Nutrition Tips for Relief of Diarrhea (GEN), Lactose Intolerance (GEN) Additional Instructions: 1. Keep hydrated, preferably with electrolyte rich drinks like gatorade or vitamin water 2. Okay to eat salty foods 3. Follow up with PCP within 2 weeks 4. For any new or worsening symptoms or concerns, please see PCP immediately or return to the ED Referrals: PCP,NO [Primary Care Provider] - <Mic Rodriguez - Last Filed: 02/03/17 10:08> Provider - Provider Date of Admission: 01/20/17 16:51 Attending physician: Mic Rodriguez MD Primary care physician: NO PRIMARY CARE PROVIDER Hospital Course - Lab Results Lab Results: Micro Results 01/20/17 21:00 Stool Stool Culture - Final NO SALMONELLA, SHIGELLA OR CAMPYLOBACTER ISOLATED. 01/22/17 10:37 Urine Urine Culture - Final No Growth (<1,000 CFU/ML) 01/20/17 21:00 Stool Ova and Parasite Concentrate Exam - Final 01/20/17 21:00 Stool C. difficile Antigen & Toxin A,B (M - Final Most Recent Lab Values WBC 3.2 10^3/ul (4.5-11.0) L D 01/22/17 07:00 RBC 3.09 10^6/uL (3.5-6.1) L 01/22/17 07:00 Hgb 10.2 gm/dL (12.0-16.0) L 01/22/17 07:00 Hct 29.0 % (36.0-48.0) L 01/22/17 07:00 MCV 93.9 fL (80.0-105.0) 01/22/17 07:00 MCH 33.0 pg (25.0-35.0) 01/22/17 07:00 MCHC 35.2 g/dl (31.0-37.0) 01/22/17 07:00 RDW 14.2 % (11.5-14.5) 01/22/17 07:00 Plt Count 144 10^3/uL (120.0-450.0) 01/22/17 07:00 MPV 9.2 fl (7.0-11.0) 01/22/17 07:00 Gran % 57.4 % (50.0-68.0) 01/22/17 07:00 Lymph % (Auto) 23.8 % (22.0-35.0) 01/22/17 07:00 [place] % (Auto) 17.2 % (1.0-6.0) H 01/22/17 07:00 Eos % (Auto) 1.3 % (1.5-5.0) L 01/22/17 07:00 Baso % (Auto) 0.3 % (0.0-3.0) 01/22/17 07:00 Gran # 1.84 (1.4-6.5) 01/22/17 07:00 Lymph # 0.8 (1.2-3.4) L 01/22/17 07:00 [place] # 0.6 (0.1-0.6) 01/22/17 07:00 Eos # 0.0 (0.0-0.7) 01/22/17 07:00 Baso # 0.01 K/mm3 (0.0-2.0) 01/22/17 07:00 Neutrophils % (Manual) 90 % (50.0-70.0) H 01/20/17 14:30 Band Neutrophils % 5 % (0-2) H 01/20/17 14:30 Lymphocytes % (Manual) 3 % (22.0-35.0) L 01/20/17 14:30 Monocytes % (Manual) 2 % (1.0-6.0) 01/20/17 14:30 Platelet Evaluation Normal (NORMAL) 01/20/17 14:30 Retic Count 1.67 % (0.5-1.5) H 01/21/17 06:30 PT 11.7 Seconds (9.9-11.8) 01/20/17 14:30 INR 1.08 (0.93-1.08) 01/20/17 14:30 APTT 30.3 Seconds (23.7-30.8) 01/20/17 14:30 Sodium 130 mmol/L (132-148) L 01/22/17 07:00 Potassium 4.2 mmol/L (3.6-5.0) 01/22/17 07:00 Chloride 99 mmol/L (98-107) 01/22/17 07:00 Carbon Dioxide 27 mmol/L (21-33) 01/22/17 07:00 Anion Gap 8 (10-20) L 01/22/17 07:00 BUN 6 mg/dL (7-21) L 01/22/17 07:00 Creatinine 0.5 mg/dL (0.5-1.4) 01/22/17 07:00 Est GFR ( Amer) > 60 01/22/17 07:00 Est GFR (Non-Af Amer) > 60 01/22/17 07:00 Random Glucose 90 mg/dL (70-110) 01/22/17 07:00 Serum Osmolality 271 mosm/kg (271-296) 01/20/17 14:30 Calcium 8.4 mg/dL (8.4-10.5) 01/22/17 07:00 Magnesium 1.7 mg/dL (1.7-2.2) 01/22/17 07:00 Iron 13 ug/dL (45-180) L 01/20/17 19:54 TIBC 244 ug/dL (265-497) L 01/20/17 19:54 % Saturation 5 % (20-55) L 01/20/17 19:54 Ferritin 166.0 ng/mL 01/21/17 06:30 Total Bilirubin 0.2 mg/dL (0.2-1.3) 01/22/17 07:00 AST 31 U/L (15-39) 01/22/17 07:00 ALT 27 U/L (7-56) 01/22/17 07:00 Alkaline Phosphatase 50 U/L (38-133) 01/22/17 07:00 Total Protein 5.4 g/dL (5.8-8.3) L 01/22/17 07:00 Albumin 2.9 g/dL (3.0-4.8) L 01/22/17 07:00 Globulin 2.5 gm/dL 01/22/17 07:00 Albumin/Globulin Ratio 1.2 (1.1-1.8) 01/22/17 07:00 Lipase 57 U/L (23-300) 01/20/17 14:30 Vitamin B12 > 1000 pg/mL (239-931) H 01/21/17 06:30 Folate > 20.0 ng/mL 01/21/17 06:30 Procalcitonin 0.42 NG/ML (0.19-0.49) 01/20/17 19:55 Urine Color Yellow (YELLOW) 01/20/17 15:20 Urine Appearance Clear (CLEAR) 01/20/17 15:20 Urine pH 7.0 (4.7-8.0) 01/20/17 15:20 Ur Specific Codorus 1.025 (1.005-1.035) 01/20/17 15:20 Urine Protein 100 mg/dL (<30 mg/dL) H 01/20/17 15:20 Urine Glucose (UA) Negative mg/dL (NEGATIVE) 01/20/17 15:20 Urine Ketones Negative mg/dL (NEGATIVE) 01/20/17 15:20 Urine Blood Negative (NEGATIVE) 01/20/17 15:20 Urine Nitrate Negative (NEGATIVE) 01/20/17 15:20 Urine Bilirubin Negative (NEGATIVE) 01/20/17 15:20 Urine Urobilinogen 0.2 E.U./dL (<1 E.U./dL) 01/20/17 15:20 Ur Leukocyte Esterase Negative Sujit/uL (NEGATIVE) 01/20/17 15:20 Urine RBC 0 - 2 /hpf (0-2) 01/20/17 15:20 Urine WBC 2 - 5 /hpf (0-6) 01/20/17 15:20 Ur Epithelial Cells 0 - 2 /hpf (0-5) 01/20/17 15:20 Urine Bacteria Occ (NEG) 01/20/17 15:20 Stool Leukocytes, Qual Negative (NEGATIVE) 01/20/17 21:00 Attending/Attestation - Attestation I have personally seen and examined this patient.: Yes I have fully participated in the care of the patient.: Yes I have reviewed all pertinent clinical information, including history, physical exam and plan: Yes Notes (Text): 02/03/17 10:08 Medical record note made by resident after discussion with my direction and input after the patient personally seen and examined by me. I have reviewed the chart and agree that the note represents my personal history, physical, data review and plan.
== END 2017-01-22 15:59 | disposition home or self-care (01) | DRG 645 ==
LOC: ED 14:08 → ERH 16:51 → 5RSO 17:52
PROVIDERS: ADMIT Internal Medicine; ATTEND Internal Medicine
DX: E22.2 Syndrome of inappropriate secretion of antidiuretic hormone (principal); R19.7 Diarrhea, unspecified; E86.0 Dehydration; E83.42 Hypomagnesemia; G30.9 Alzheimer's disease, unspecified; F02.80 Dementia in other diseases classified elsewhere, unspecified severity, without behavioral disturbance, psychotic disturbance, mood disturbance, and anxiety; I10 Essential (primary) hypertension; E87.6 Hypokalemia; F32.9 Major depressive disorder, single episode, unspecified; E78.5 Hyperlipidemia, unspecified; K57.30 Diverticulosis of large intestine without perforation or abscess without bleeding; D64.9 Anemia, unspecified; G47.00 Insomnia, unspecified; Z85.3 Personal history of malignant neoplasm of breast; Z85.818 Personal history of malignant neoplasm of other sites of lip, oral cavity, and pharynx; Z90.13 Acquired absence of bilateral breasts and nipples; Z90.710 Acquired absence of both cervix and uterus